=== PATIENT | male | born 1945 | race Caucasian/White ===

== ENCOUNTER 2024-10-19 01:47 | Emergency (ER) | payer SELFPAY | END 2024-10-19 02:40 | disposition home or self-care (01) | LOC: JD.ED 01:47 | DX: L03.213 Periorbital cellulitis (principal); F17.210 Nicotine dependence, cigarettes, uncomplicated; Z79.899 Other long term (current) drug therapy; Z91.09 Other allergy status, other than to drugs and biological substances | CPT/HCPCS: 99283; A9270 ==